=== PATIENT | male | born 1990 | race Caucasian/White ===

== ENCOUNTER 2017-01-22 00:47 | Emergency (ER) | payer SELFPAY ==
[~2017-01-22] VITALS: Ht 177.8 cm; Wt 72.6 kg
[~2017-01-22 00:47] MED LIST: BACTRIM DS 8001 TA1 PO
[2017-01-22] MEDS ORDERED: HYDROCODONE BIT1 T11 PO (01:43)
[2017-01-22] MEDS ORDERED: ANAPROX DS550 MG PO (01:43)
== END 2017-01-22 02:03 | disposition home or self-care (01) ==
LOC: ED 00:47
DX: S46.912A Strain of unspecified muscle, fascia and tendon at shoulder and upper arm level, left arm, initial encounter (principal); F17.200 Nicotine dependence, unspecified, uncomplicated; W01.198A Fall on same level from slipping, tripping and stumbling with subsequent striking against other object, initial encounter; Y93.89 Activity, other specified; Y92.89 Other specified places as the place of occurrence of the external cause; Y99.8 Other external cause status